=== PATIENT | female | born 1950 | race Caucasian/White ===

== ENCOUNTER → 2017-01-08 | Outpatient (CLI) | payer MEDICARE, OTHER ==
[~2017-01-08] MED LIST: AMBIEN10 MG PO; ASPIRIN EC81 M1 PO; FLEXERIL10 MG PO; HYDROCHLOROTHIA25 MG PO; OXYCODONE HCL10 MG PO; OXYCONTIN30 MG PO; SENNA-S TABLET1 EACH; SYNTHROID PO; VITAL-D RX TABL1 TAB PO; XANAX0.5 MG PO; ZESTRIL2.5 MG PO; ZOLOFT100 MG PO
--- NOTE | ~2017-01-08 | MY29 ---
[facility] A Service of [facility] RADIOLOGY TEXT RESULTS PATIENT: TK VERAS LOCATION: [facility] : 46 UNIT #: [id number] AGE: [address]: Prashant Gomez MD SEX: F ORDER DR: [id number] [facility] [address] [facility] [place], [place] [address] [id number] O MR#: [id number] Acc #: [id number] NAME: TK VERAS : 1950 SEX: F STUDY DATE/TIME: 01/08/2017 11:05 UNIT: [facility] ROOM: STUDY DESCRIPTION: MY [facility] SCREENING W/ CAD BILAT Attending Physician: Prashant Gomez M.D. Ordering Physician: Prashant Gomez M.D. Primary Care Physician: Cesar Klein MEDICAL IMAGING REPORT This report is preliminary unless electronic signature is present EXAM Digital screening mammogram 01/08/2017 HISTORY 66-year-old woman positive family history, aunt and mother. Personal history of melanoma. Annual screen. COMPARISON 03/22/2015. FINDINGS Digital imaging of each breast was completed utilizing screening protocol. Biopsy marker was placed on the right breast. Multiple mole markers are placed bilaterally. Review includes FDA-approved CAD device. Breast parenchyma is predominantly fatty replaced bilaterally and stable. There are scattered benign calcifications in each breast. There is no interval occurring mass. There are no suspicious microcalcifications and no architectural deformity. IMPRESSION Negative mammogram. Annual screening recommended. Patients over the age of 40 are entered into a reminder system with target due date for the next mammogram. A result letter will also be sent to the patient. BIRADS: 1, negative. Dictated by... Mike Haines M.D. [facility] A Service [facility] RADIOLOGY TEXT RESULTS PATIENT: TK VERAS LOCATION: [facility] : 46 UNIT #: [id number] AGE: [address]: Prashant Gomez MD SEX: F ORDER DR: THIS IS AN ELECTRONICALLY VERIFIED REPORT Mike Haines M.D. at 01/08/2017 2:46 PM KAROL/judy TD: 01/08/2017 14:08 JOB #: [id number] MEDICAL IMAGING REPORT Page 1 of 1 COPY
== END | disposition home or self-care (01) ==
LOC: CWCC 01-06 09:00
DX: Z12.31 Encounter for screening mammogram for malignant neoplasm of breast (principal); Z80.3 Family history of malignant neoplasm of breast; Z85.820 Personal history of malignant melanoma of skin
CPT/HCPCS: G0202